=== PATIENT | female | born 1955 | race Caucasian/White ===

== ENCOUNTER → 2016-12-27 | Outpatient (REF) | payer MEDICARE, OTHER ==
[~2016-12-27] MED LIST: /BACIOPOI; /ESOM40CA; CETI10TA; CIPR500T19; CLON0.5T; HYDR25TA6; LAMI25TA; NORV5TAB; PAXI30TA
== END ==
LOC: M SFHCWAGY 11:55
PROVIDERS: ATTEND Nurse Practitioner Family
DX: N30.00 Acute cystitis without hematuria (principal); Z12.72 Encounter for screening for malignant neoplasm of vagina; Z12.12 Encounter for screening for malignant neoplasm of rectum
CPT/HCPCS: 81002; 82270; 87088; 87186; G0101; G0123

== ENCOUNTER → 2016-12-29 | Outpatient (CLI) | payer MEDICARE, OTHER ==
--- NOTE | 2016-12-29 14:14 | REPMRS ---
Patient History The patient states she had a clinical breast exam in December 2016. Patient is postmenopausal and has history of cancer in the left breast at age 50. Family history of breast cancer in maternal grandmother at age 50 or over. Malignant excisional biopsy of the left breast, 2006. Benign stereotatic breast biopsy of the right breast. Digital Mammo Diagnostic Bilateral: December 29, 2016 - Exam #: [id number] Bilateral CC and MLO view(s) were taken. Technologist: Vivian Leon Technologist Prior study comparison: July 16, 2014, digital woman screen mammo, performed at [facility]. January 25, 2011, bilateral bilat screen digital mammo, performed at [facility] ([facility]). FINDINGS: There are scattered fibroglandular densities. There is a moderate amount of residual fibroglandular tissue which is fairly symmetric. There is no interval development of dominant mass, architectural distortion, or clustered microcalcification typical of malignancy. There has been no change in the appearance of the mammogram from the prior studies. ASSESSMENT: BI-RADS/ACR category 1 mammogram. Negative. Recommendation Routine screening mammogram of both breasts in 1 year (for women over age 40). This mammogram was interpreted with the aid of an FDA-approved computer-aided dectection system. Electronically Signed By: Grant Greenwood MD 12/29/16 [id number]
== END ==
LOC: M RAD 13:47
PROVIDERS: ATTEND Nurse Practitioner Family
DX: N64.4 Mastodynia (principal); N63 Unspecified lump in breast; Z78.0 Asymptomatic menopausal state; Z85.3 Personal history of malignant neoplasm of breast; Z80.3 Family history of malignant neoplasm of breast

== ENCOUNTER 2017-07-06 23:05 | Emergency (ER) | payer MEDICARE, OTHER ==
[~2017-07-06] VITALS: Ht 170.2 cm; Wt 72.7 kg
[2017-07-06] MEDS ORDERED: LAMI25TA (23:19)
[2017-07-06] MEDS ORDERED: VERA100C (23:19)
[2017-07-06] MEDS ORDERED: EFFE37.527 (23:19)
[2017-07-06] MEDS ORDERED: KETOROLAC 30 MG/ML VIAL (J1885) IV ONE (23:30)
[2017-07-06 23:48] LABS: INR 0.94
[2017-07-07 00:01] LABS: ANION GAP 5 MEQ/L (8-16); BLOOD UREA NITROGEN 26 MG/DL (7-18); CALCIUM LEVEL 9.2 MG/DL (8.8-10.2); CARBON DIOXIDE LEVEL 31 MEQ/L (21-32); CHLORIDE LEVEL 102 MEQ/L (98-107); CREATININE FOR GFR 1.03 MG/DL (0.55-1.02); GLOMERULAR FILTRATION RATE 58.2 (>45); GLUCOSE, FASTING 170 MG/DL (80-110); POTASSIUM SERUM 2.9 MEQ/L (3.5-5.1); SODIUM LEVEL 138 MEQ/L (136-145)
[2017-07-07] MEDS ORDERED: POTASSIUM CHLORIDE 10 MEQ SR TABLET PO ONE (00:15)
[2017-07-07] MEDS ORDERED: ISOVUE-370 76% 100ML VIAL (Q9967) As Ordered ONE (00:57)
[2017-07-07] MEDS ORDERED: NS 500 ML IV ONE (01:00)
--- NOTE | 2017-07-07 02:20 | REPUSA ---
CLINICAL HISTORY: Pain. TECHNIQUE: Multiple axial CT images were obtained through the thorax with IV contrast material. COMMENTS: Mild emphysema. There is no evidence of pleural or parenchymal mass. There are no pleural effusions. There is no evid ence of hilar or mediastinal lymphadenopathy. The heart and great vessels are within normal limits. The visualized portions of the liver are of uniform attenuation without mass or defect. There is no i ntra or extrahepatic biliary ductal dilatation. The spleen is unremarkable. The visualized pancreas i s of normal contour and attenuation characteristics. There is no evidence of adrenal mass. The visual ized portions of the kidneys present no abnormalities. The bony structures are free of lytic or blastic lesions. Post contrast images demonstrate no evidence for abnormal enhancement. Prior cholecystectomy. No central pulmonary embolus or aortic dissection is seen. IMPRESSION: Mild emphysema. No evidence of acute thoracic pathology. Thank you for your kind referral of this patient.
[2017-07-07] MEDS ORDERED: KETO10TAB PO (02:31)
[2017-07-07 02:43] VITALS: BP 139/63
--- NOTE | 2017-07-07 08:32 | ECGEPIP ---
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
== END 2017-07-07 02:48 | disposition home or self-care (01) ==
LOC: M ED 23:05
DX: R07.89 Other chest pain (principal); J44.9 Chronic obstructive pulmonary disease, unspecified; K21.9 Gastro-esophageal reflux disease without esophagitis; K44.9 Diaphragmatic hernia without obstruction or gangrene; F33.9 Major depressive disorder, recurrent, unspecified; F17.210 Nicotine dependence, cigarettes, uncomplicated; Z98.890 Other specified postprocedural states; Z79.899 Other long term (current) drug therapy; Z88.1 Allergy status to other antibiotic agents; Z88.0 Allergy status to penicillin; Z88.2 Allergy status to sulfonamides
CPT/HCPCS: 71260; 80048; 82550; 82553; 84484; 85610; 85730; 93005; 96374; 99284; J1885; Q9967

== ENCOUNTER → 2017-07-22 | Outpatient (CLI) | payer MEDICARE, OTHER ==
[~2017-07-22] MED LIST changes: +EFFE37.527; +KETO10TAB PO; +VERA100C
[2017-07-22 20:02] LABS: CALCIUM LEVEL 9.6 MG/DL (8.8-10.2); CREATININE FOR GFR 1.08 MG/DL (0.55-1.02); GLOMERULAR FILTRATION RATE 55.1 (>45); POTASSIUM SERUM 3.4 MEQ/L (3.5-5.1)
== END ==
LOC: M LAB 18:52
PROVIDERS: ATTEND Family Medicine
DX: I10 Essential (primary) hypertension (principal)

== ENCOUNTER 2018-04-05 14:43 | Emergency (ER) | payer MEDICARE, OTHER ==
[2018-04-05] MEDS: LIDOCAINE W/EPINEPHRINE 1% 20ML VIAL SC (16:01)
== END 2018-04-05 16:27 | disposition home or self-care (01) ==
LOC: M ED 14:43
DX: J44.9 Chronic obstructive pulmonary disease, unspecified (principal); R05 Cough; S90.851A Superficial foreign body, right foot, initial encounter; W45.8XXA Other foreign body or object entering through skin, initial encounter; Y92.9 Unspecified place or not applicable; Y93.9 Activity, unspecified; Y99.9 Unspecified external cause status; K44.9 Diaphragmatic hernia without obstruction or gangrene; F41.9 Anxiety disorder, unspecified; F32.9 Major depressive disorder, single episode, unspecified; Z85.3 Personal history of malignant neoplasm of breast; Z72.0 Tobacco use; Z79.899 Other long term (current) drug therapy; Z88.0 Allergy status to penicillin; Z88.2 Allergy status to sulfonamides; Z88.1 Allergy status to other antibiotic agents
CPT/HCPCS: 71046

== ENCOUNTER → 2018-04-24 | Outpatient (REF) | payer MEDICARE, OTHER | LOC: M SFHCWAGY 18:09 | DX: R35.0 Frequency of micturition (principal) | CPT/HCPCS: 87088; 87186 ==

== ENCOUNTER 2018-05-05 13:34 | Emergency (ER) | payer MEDICARE, OTHER | END 2018-05-05 15:05 | disposition home or self-care (01) | LOC: M ED 13:34 | DX: Z76.0 Encounter for issue of repeat prescription (principal); I10 Essential (primary) hypertension; Z79.899 Other long term (current) drug therapy; Z88.0 Allergy status to penicillin; Z88.1 Allergy status to other antibiotic agents; Z88.2 Allergy status to sulfonamides; F17.210 Nicotine dependence, cigarettes, uncomplicated | CPT/HCPCS: 99283 ==

== ENCOUNTER → 2018-09-06 | Outpatient (CLI) | payer MEDICARE, OTHER ==
[2018-09-06 11:17] LABS: BASO # 0.1 10^3/uL (0.0-0.2); BASO % 0.6 % (0.0-1.0); EOS # 0.1 10^3/uL (0.0-0.50); EOS % 1.7 % (0.0-3.0); HEMOGLOBIN 14.9 g/dl (12.0-15.5); IMMATURE GRANULOCYTE % 0.3 % (0-3.0); LYMPH # 2.2 10^3/uL (1.5-4.5); LYMPH % 28.7 % (24.0-44.0); MEAN CORPUSCULAR HEMOGLOBIN 31.4 pg (27.0-33.0); MEAN CORPUSCULAR HGB CONC 33.9 g/dl (32.0-36.5); MEAN CORPUSCULAR VOLUME 92.6 fl (80.0-96.0); MONO # 0.7 10^3/uL (0.0-0.8); MONO % 9.3 % (0.0-5.0); NEUTROPHILS # 4.6 10^3/uL (1.8-7.7); NEUTROPHILS % 59.4 % (36.0-66.0); PLATELET COUNT, AUTOMATED 282 10^3/uL (150-450); RED BLOOD COUNT 4.75 10^6/uL (4.00-5.40); RED CELL DISTRIBUTION WIDTH 12.5 % (11.5-14.5); WHITE BLOOD COUNT 7.8 10^3/uL (4.0-10.0)
[2018-09-06 11:42] LABS: ALBUMIN 3.8 GM/DL (3.2-5.2); ALBUMIN/GLOBULIN RATIO 0.84 (1.00-1.93); ALKALINE PHOSPHATASE 92 U/L (45-117); ALT/SGPT 25 U/L (12-78); ANION GAP 5 MEQ/L (8-16); AST/SGOT 19 U/L (7-37); BILIRUBIN,TOTAL 0.2 MG/DL (0.2-1.0); BLOOD UREA NITROGEN 24 MG/DL (7-18); CALCIUM LEVEL 9.8 MG/DL (8.8-10.2); CARBON DIOXIDE LEVEL 30 MEQ/L (21-32); CHLORIDE LEVEL 106 MEQ/L (98-107); CHOLESTEROL LEVEL 205 MG/DL (<200); CHOLESTEROL RISK RATIO 5.125 (<5); CREATININE FOR GFR 1.11 MG/DL (0.55-1.30); GLOMERULAR FILTRATION RATE 53.2 (>45); GLUCOSE, FASTING 109 MG/DL (70-100); HDL CHOLESTEROL 40 MG/DL (>40); LDL CHOLESTEROL 144 MG/DL (<100); NON-HDL-C 165 MG/DL; POTASSIUM SERUM 4.3 MEQ/L (3.5-5.1); SODIUM LEVEL 141 MEQ/L (136-145); TOTAL PROTEIN 8.3 GM/DL (6.4-8.2); TRIGLYCERIDES LEVEL 104 MG/DL (<150)
== END ==
LOC: M LAB 10:42
DX: I10 Essential (primary) hypertension (principal)
CPT/HCPCS: 36591

== ENCOUNTER → 2018-09-27 | Outpatient (REF) | payer MEDICARE, OTHER ==
[~2018-09-27] MED LIST changes: +CHERSYP3 PO; +EFFE37.5; -EFFE37.527; +HYDR-3363 PO; +LEVA45AE; +SPIR12.9 INH; +SYMB16INH INH; +TESS100C PO; +TRAZ-160
== END ==
LOC: M SFHCWAGY 15:28
PROVIDERS: ATTEND Nurse Practitioner Family
DX: R30.0 Dysuria (principal)
CPT/HCPCS: 81002; 87088; 87186; G0463

== ENCOUNTER → 2018-10-19 | Outpatient (REF) | payer MEDICARE, OTHER ==
[2018-10-19 12:29] LABS: AMORPHOUS SEDIMENT SMALL (NEGATIVE); APPEARANCE, URINE CLEAR (CLEAR); BACTERIA, URINE AUTO NEGATIVE (NEGATIVE); BILIRUBIN, URINE AUTO NEGATIVE (NEGATIVE); BLOOD, URINE BLOOD NEGATIVE (NEGATIVE); COLOR, URINE YELLOW (YELLOW); GLUCOSE, URINE (UA) AUTO NEGATIVE (NEGATIVE); KETONE, URINE AUTO NEGATIVE (NEGATIVE); LEUKOCYTE ESTERASE, URINE AUTO 1+ (NEGATIVE); MUCUS, URINE SMALL (NEGATIVE); NITRITE, URINE AUTO NEGATIVE (NEGATIVE); PROTEIN, URINE AUTO NEGATIVE (NEGATIVE); RBC, URINE AUTO 1 /HPF (0-3); SPECIFIC GRAVITY URINE AUTO 1.023 (1.002-1.035); SQUAMOUS EPITHELIAL CELL UR AU 2 /HPF (0-6); UROBILINOGEN, URINE AUTO 0.2 mg/dL (0.0-2.0); WBC, URINE AUTO 3 /HPF (0-3)
== END ==
LOC: M SFHCWAGY 11:51
PROVIDERS: ATTEND Nurse Practitioner Family
DX: R30.0 Dysuria (principal)

== ENCOUNTER → 2018-10-19 | Outpatient (CLI) | payer MEDICARE, OTHER ==
--- NOTE | 2018-10-19 10:44 | REP ---
CT CHEST WITHOUT CONTRAST: HISTORY: Hemoptysis. Comparison chest CT study July 07, 2017 showed evidence of mild emphysema. CT FINDINGS: There are mild emphysematous changes again noted in the upper lobes bilaterally, left a little more so than right. No new infiltrate is seen. There are stable pleural based nodules including a nodule in the right middle lobe laterally on page 61 of 110 in series 201 of today's study. This is unchanged and measures 6 mm. There is a 4 mm pleural-based nodule in the right lower lobe posteriorly on page 46. This is unchanged. There is some linear fibrosis in the right upper lobe posteriorly on page 36 which is unchanged. There is a 4 mm nodular density in the left upper lobe medially adjacent to the middle mediastinum which appears more prominent than on the July 07, [address] Sagittal multiplanar reformation images suggest that this is part of a linear area of increased density. It does appear more prominent than the prior study however and merits additional followup. No other significant pulmonary nodule is seen. There is some vascular calcification. There is no evidence of mediastinal mass or adenopathy. The tracheobronchial tree is unremarkable. There are clips in the gallbladder fossa and there is a small cyst in the right lobe of the liver. No adrenal lesion is observed. IMPRESSION: Multiple stable noncalcified pulmonary nodules. No infiltrate, mass or adenopathy is seen. There is a somewhat nodular density in the left upper lobe medially adjacent to the mediastinum which appears slightly more prominent than on the July 07, [address] study[address] Additional [address] study is recommended in 6-9 months. Electronically Signed by Abdullahi Greenwood MD 10/19/2018 05:00 P
== END ==
LOC: M RAD 09:13
PROVIDERS: ATTEND Family Medicine
DX: R91.8 Other nonspecific abnormal finding of lung field (principal); K76.89 Other specified diseases of liver; R04.2 Hemoptysis; J44.9 Chronic obstructive pulmonary disease, unspecified; R30.0 Dysuria
CPT/HCPCS: 71250; 81001; 81002; 87086; G0463

== ENCOUNTER 2019-01-10 16:35 | Emergency (ER) | payer MEDICARE, OTHER ==
[~2019-01-10] VITALS: Ht 170.2 cm; Wt 73.2 kg
[~2019-01-10 16:35] MED LIST changes: -/ESOM40CA; +NEXI1CAP3
[2019-01-10] MEDS ORDERED: SYMB16INH INH ×2 (16:53→19:35)
[2019-01-10] MEDS ORDERED: MYRB50TA PO (16:53)
[2019-01-10] MEDS ORDERED: LISI10TA4 PO (16:53)
[2019-01-10] MEDS ORDERED: ATOR1TAB21 PO (16:53)
--- NOTE | 2019-01-10 17:25 | REP ---
Clinical: Cough . Comparison: 04/05/2018 . Technique: PA and lateral. Findings: The mediastinum and cardiac silhouette are normal. The lung kennedy are clear and without acute consolidation, effusion, or pneumothorax. The skeletal structures are intact and normal. Impression: 1. No acute cardiopulmonary process. Electronically Signed by Krunal Bailey MD 01/10/2019 05:17 P
[2019-01-10] MEDS ORDERED: predniSONE 20 MG TAB PO ONE (18:45)
[2019-01-10] MEDS ORDERED: IPRATROPIUM 0.5MG/ALBUTEROL 2.5MG INH SOL UD 3ML (DUONEB)(J7620) NEB ONE (18:45)
[2019-01-10 19:25] VITALS: BP 145/75
[2019-01-10] MEDS ORDERED: IPRA0.00 NEB (19:35)
[2019-01-10] MEDS ORDERED: MEDR4PAK PO (19:35)
--- NOTE | 2019-01-11 10:21 | ECGEPIP ---
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
== END 2019-01-10 19:45 | disposition home or self-care (01) ==
LOC: M ED 16:35
DX: J44.1 Chronic obstructive pulmonary disease with (acute) exacerbation (principal); I10 Essential (primary) hypertension; I47.1 Supraventricular tachycardia; K21.9 Gastro-esophageal reflux disease without esophagitis; F33.9 Major depressive disorder, recurrent, unspecified; F41.9 Anxiety disorder, unspecified; Z79.899 Other long term (current) drug therapy; Z88.0 Allergy status to penicillin; Z88.1 Allergy status to other antibiotic agents; Z88.2 Allergy status to sulfonamides; F17.210 Nicotine dependence, cigarettes, uncomplicated

== ENCOUNTER 2019-03-31 12:46 | Emergency (ER) | payer MEDICARE, OTHER ==
[~2019-03-31] VITALS: Ht 170.2 cm; Wt 75.9 kg
[~2019-03-31 12:46] MED LIST changes: +ATOR1TAB21 PO; +IPRA0.00 NEB; +LISI10TA4 PO; +MEDR4PAK PO; +MYRB50TA PO; -TRAZ-160; +TRAZ-252
[2019-03-31] MEDS ORDERED: MACR100C43 PO (14:51)
[2019-03-31 14:59] VITALS: BP 157/73
== END 2019-03-31 14:58 | disposition home or self-care (01) ==
LOC: M ED 12:46
DX: N39.0 Urinary tract infection, site not specified (principal); N95.2 Postmenopausal atrophic vaginitis; Z79.899 Other long term (current) drug therapy; Z88.0 Allergy status to penicillin; Z88.1 Allergy status to other antibiotic agents; Z88.2 Allergy status to sulfonamides; F17.210 Nicotine dependence, cigarettes, uncomplicated

== ENCOUNTER 2019-05-04 02:38 | Emergency (ER) | payer MEDICARE, OTHER ==
[~2019-05-04] VITALS: Ht 170.2 cm; Wt 75.7 kg
[~2019-05-04 02:38] MED LIST changes: +MACR100C43 PO
[2019-05-04 03:21] LABS: BASO % 0.6 % (0.0-1.0); EOS # 0.3 10^3/uL (0.0-0.50); EOS % 5.3 % (0.0-3.0); HEMATOCRIT 40.7 % (36.0-47.0); HEMOGLOBIN 14.1 g/dl (12.0-15.5); LYMPH # 2.3 10^3/uL (1.5-4.5); MEAN CORPUSCULAR HEMOGLOBIN 31.3 pg (27.0-33.0); MEAN CORPUSCULAR HGB CONC 34.6 g/dl (32.0-36.5); MEAN CORPUSCULAR VOLUME 90.2 fl (80.0-96.0); MONO # 0.7 10^3/uL (0.0-0.8); MONO % 10.7 % (0.0-5.0); NEUTROPHILS % 47.1 % (36.0-66.0); PLATELET COUNT, AUTOMATED 246 10^3/uL (150-450); RED BLOOD COUNT 4.51 10^6/uL (4.00-5.40); WHITE BLOOD COUNT 6.5 10^3/uL (4.0-10.0)
[2019-05-04 03:25] LABS: PROTHROMBIN TIME 12.9 SECONDS (11.8-14.0)
[2019-05-04 03:26] LABS: PARTIAL THROMBOPLASTIN TIME 30.4 SECONDS (25.0-38.4)
[2019-05-04 03:39] LABS: ALBUMIN 3.8 GM/DL (3.2-5.2); ALT/SGPT 36 U/L (12-78); BILIRUBIN,DIRECT < 0.1 MG/DL (0.0-0.2); BILIRUBIN,TOTAL 0.2 MG/DL (0.2-1.0); BLOOD UREA NITROGEN 19 MG/DL (7-18); CALCIUM LEVEL 9.2 MG/DL (8.8-10.2); CARBON DIOXIDE LEVEL 28 MEQ/L (21-32); CHLORIDE LEVEL 105 MEQ/L (98-107); CK-MB VALUE MASS 9.1 NG/ML (<3.6); CPK CREATINE PHOSPHOKINASE 427 U/L (26-192); CREATININE FOR GFR 1.11 MG/DL (0.55-1.30); FREE T4 0.87 NG/DL (0.76-1.46); GLUCOSE, FASTING 147 MG/DL (70-100); MB/CK RELATIVE INDEX 2.13 (< OR =4); POTASSIUM SERUM 3.6 MEQ/L (3.5-5.1); SODIUM LEVEL 139 MEQ/L (136-145); THYROID STIMULATING HORMONE 0.616 uIU/ML (0.358-3.740); TOTAL PROTEIN 8.7 GM/DL (6.4-8.2); TROPONIN I < 0.02 NG/ML (< 0.10)
--- NOTE | 2019-05-04 05:42 | REPVR ---
EXAM: XR Chest, 2 Views EXAM DATE/TIME: 05/04/2019 3:38 AM CLINICAL HISTORY: 64 years old, female; Other: cough TECHNIQUE: Imaging protocol: XR of the chest, 2 views. COMPARISON: CR Chest, 2 view PA, Lat 01/10/2019 5:11 PM FINDINGS: Lungs: No consolidation. Hyperaeration of the lungs. Pleural space: Unremarkable. No pleural effusion. No pneumothorax. Heart/Mediastinum: Unremarkable. No cardiomegaly. Bones/joints: Unremarkable. IMPRESSION: 1. No acute infiltrate. 2. Hyperaeration of the lungs. Electronically signed by: Becki Simmons On 05/04/2019 05:42:37 AM
[2019-05-04 06:00] VITALS: BP 133/62
--- NOTE | 2019-05-04 06:03 | ECGEPIP ---
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
== END 2019-05-04 06:16 | disposition home or self-care (01) ==
LOC: M ED 02:38
DX: J06.9 Acute upper respiratory infection, unspecified (principal); I10 Essential (primary) hypertension; J44.9 Chronic obstructive pulmonary disease, unspecified; F33.9 Major depressive disorder, recurrent, unspecified; F41.9 Anxiety disorder, unspecified; Z79.899 Other long term (current) drug therapy; Z88.0 Allergy status to penicillin; Z88.1 Allergy status to other antibiotic agents; Z88.2 Allergy status to sulfonamides; Z88.5 Allergy status to narcotic agent; F17.210 Nicotine dependence, cigarettes, uncomplicated

== ENCOUNTER 2019-05-11 15:29 | Emergency (ER) | payer MEDICARE, OTHER ==
[~2019-05-11] VITALS: Ht 170.2 cm; Wt 73.8 kg
[2019-05-11 15:29] VITALS: BP 144/74
--- NOTE | 2019-05-11 16:32 | REP ---
LEFT HUMERUS, TWO VIEWS: There is no evidence of an acute fracture, dislocation or intrinsic bone disease. IMPRESSION: No fracture or dislocation. Electronically Signed by Papito Casillas MD 05/15/2019 05:40 P
--- NOTE | 2019-05-11 16:32 | REP ---
LEFT SHOULDER, THREE VIEWS: Three views of the left shoulder are performed. There is no acute fracture or dislocation. There is mild narrowing at the acromioclavicular joint. IMPRESSION: No acute fracture or dislocation. Electronically Signed by Papito Casillas MD 05/15/2019 05:40 P
== END 2019-05-11 18:43 | disposition left against medical advice (07) ==
LOC: M ED 15:29
DX: R07.82 Intercostal pain (principal); M79.622 Pain in left upper arm; R07.9 Chest pain, unspecified; J44.9 Chronic obstructive pulmonary disease, unspecified; I10 Essential (primary) hypertension; K21.9 Gastro-esophageal reflux disease without esophagitis; K44.9 Diaphragmatic hernia without obstruction or gangrene; Z85.3 Personal history of malignant neoplasm of breast; Z72.0 Tobacco use; Z79.899 Other long term (current) drug therapy; Z88.0 Allergy status to penicillin; Z88.2 Allergy status to sulfonamides; Z88.5 Allergy status to narcotic agent; Z88.1 Allergy status to other antibiotic agents; Z53.21 Procedure and treatment not carried out due to patient leaving prior to being seen by health care provider

== ENCOUNTER → 2019-06-08 | Outpatient (CLI) | payer MEDICARE, OTHER ==
[~2019-06-08] MED LIST changes: -VERA100C; +VERA100C4
--- NOTE | 2019-06-08 19:34 | REP ---
CT of the chest without IV contrast for follow up of lung nodules: Comparisons are 10/19/2018, 07/07/2017 and 10/21/2012. There is a 4 mm left upper lobe paramediastinal lung nodule on image and 19, unchanged from 11/08/1998, not definitely present on the other comparison studies. Just superior to this there is a 3 mm paramediastinal nodule in the left upper lobe measuring unchanged from all prior studies. There is a pleural-based 4 mm lung nodule posteriorly in the right upper lobe on image 31, unchanged from all prior studies. There is a pleural-based lung nodule in the superior segment right lower lobe measuring 4 mm, unchanged from all prior studies. The there is a pleural-based nodule laterally in the lateral segment of the right middle lobe measuring 6 mm. This measured at 8 mm of 10/21/2012. There are no new lung nodules or masses. There are no acute infiltrates or pleural effusions. There is no mediastinal or axillary lymph node enlargement. In the absence of IV contrast the study is insensitive for hilar lymph node enlargement. The unenhanced thoracic aorta is unremarkable. Cardiac size is normal. In the upper abdomen there is no adrenal mass. There is a stable small nonspecific hypodensity in the right lobe of the liver, unchanged from all prior studies. Impression: Multiple stable lung nodules as described. Recommend follow-up chest CT in 1 year. Electronically Signed by Papito Massey MD 06/08/2019 07:25 P
== END ==
LOC: M RAD 17:51
PROVIDERS: ATTEND Family Medicine
DX: R91.8 Other nonspecific abnormal finding of lung field (principal)

== ENCOUNTER → 2019-09-21 | Outpatient (CLI) | payer MEDICARE, OTHER ==
[~2019-09-21] MED LIST changes: +VERA100C; -VERA100C4
--- NOTE | 2019-09-21 11:19 | REPMRS ---
Patient History The patient states she had a clinical breast exam in September 2019.Family history of breast cancer at age 50 or over in maternal grandmother. Malignant excisional biopsy of the left breast, 2006. Benign stereotatic breast biopsy of the right breast. 3D TOMOSYNTHESIS WAS PERFORMED. Digital Woman Screen Mammo: September 21, 2019 - Exam #: [id number] Bilateral CC and MLO view(s) were taken. Technologist: Yamilka Mccurdy, Technologist Prior study comparison: December 29, 2016, digital mammo diagnostic bilateral, performed at [facility]. July 16, 2014, digital woman screen mammo performed at [facility]. FINDINGS: The breast tissue is heterogeneously dense. This may lower the sensitivity of mammography. There has been no change in the appearance of the mammogram from the prior studies. There is a moderate amount of residual fibroglandular tissue which is fairly symmetric. There is no interval development of dominant mass, areas of architectural distortion, or clustered microcalcification typical of malignancy. Assessment: BI-RADS/ACR category 1 mammogram. Negative Mammogram. Recommendation Routine screening mammogram in 1 year (for women over age 40). This mammogram was interpreted with the aid of an FDA-approved computer-aided dectection system. Electronically Signed By: Papito Casillas MD 09/21/19 [id number]
== END ==
LOC: M WHC 10:16
PROVIDERS: ATTEND Nurse Practitioner Family
DX: Z12.31 Encounter for screening mammogram for malignant neoplasm of breast (principal); Z85.3 Personal history of malignant neoplasm of breast; R30.0 Dysuria
CPT/HCPCS: 77063; 77067; 81002; 87086; G0463

== ENCOUNTER → 2019-10-31 | Outpatient (CLI) | payer MEDICARE, OTHER ==
[~2019-10-31] MED LIST changes: -VERA100C; +VERA100C4
[2019-10-31 17:30] LABS: BASO # 0.1 10^3/uL (0.0-0.2); BASO % 0.7 % (0.0-1.0); EOS # 0.1 10^3/uL (0.0-0.5); EOS % 1.6 % (0.0-3.0); HEMATOCRIT 45.2 % (36.0-47.0); HEMOGLOBIN 15.4 g/dl (12.0-15.5); LYMPH # 2.6 10^3/uL (1.5-5.0); LYMPH % 33.5 % (24.0-44.0); MEAN CORPUSCULAR HEMOGLOBIN 31.2 pg (27.0-33.0); MEAN CORPUSCULAR HGB CONC 34.1 g/dl (32.0-36.5); MEAN CORPUSCULAR VOLUME 91.5 fl (80.0-96.0); MONO # 0.6 10^3/uL (0.0-0.8); MONO % 7.7 % (0.0-5.0); NEUTROPHILS # 4.3 10^3/uL (1.5-8.5); NEUTROPHILS % 56.4 % (36.0-66.0); RED BLOOD COUNT 4.94 10^6/uL (4.00-5.40); WHITE BLOOD COUNT 7.6 10^3/uL (4.0-10.0)
[2019-10-31 17:53] LABS: ALT/SGPT 32 U/L (12-78); BILIRUBIN,TOTAL 0.3 MG/DL (0.2-1.0); BLOOD UREA NITROGEN 24 MG/DL (7-18); CALCIUM LEVEL 9.5 MG/DL (8.8-10.2); CARBON DIOXIDE LEVEL 26 MEQ/L (21-32); CHLORIDE LEVEL 105 MEQ/L (98-107); CREATININE FOR GFR 0.99 MG/DL (0.55-1.30); FOLLICLE STIMULATING HORMONE 83.6 mIU/mL; GLOMERULAR FILTRATION RATE > 60.0 (>45); GLUCOSE, FASTING 86 MG/DL (70-100); LUTEINIZING HORMONE 40.1 mIU/mL; POTASSIUM SERUM 3.5 MEQ/L (3.5-5.1); SODIUM LEVEL 139 MEQ/L (136-145); THYROID STIMULATING HORMONE 0.307 uIU/ML (0.358-3.740); TOTAL PROTEIN 8.8 GM/DL (6.4-8.2)
== END ==
LOC: M LAB 16:15
PROVIDERS: ATTEND Family Medicine
DX: R23.2 Flushing (principal); R53.81 Other malaise

== ENCOUNTER → 2019-11-21 | Outpatient (CLI) | payer MEDICARE, OTHER ==
[2019-11-21 17:59] LABS: FREE T3 2.8 PG/ML (2.2-4.0); FREE T4 0.83 NG/DL (0.76-1.46); THYROID STIMULATING HORMONE 0.293 uIU/ML (0.358-3.740)
== END ==
LOC: M LAB 17:02
PROVIDERS: ATTEND Family Medicine
DX: E07.9 Disorder of thyroid, unspecified (principal)

== ENCOUNTER → 2019-11-30 | Outpatient (CLI) | payer MEDICARE, OTHER ==
[2019-11-30 19:01] LABS: APPEARANCE, URINE HAZY (CLEAR); BACTERIA, URINE AUTO 1+ (NEGATIVE); BILIRUBIN, URINE AUTO NEGATIVE (NEGATIVE); BLOOD, URINE BLOOD NEGATIVE (NEGATIVE); COLOR, URINE YELLOW (YELLOW); GLUCOSE, URINE (UA) AUTO NEGATIVE (NEGATIVE); KETONE, URINE AUTO NEGATIVE (NEGATIVE); LEUKOCYTE ESTERASE, URINE AUTO 2+ (NEGATIVE); MUCUS, URINE SMALL (NEGATIVE); NITRITE, URINE AUTO NEGATIVE (NEGATIVE); PROTEIN, URINE AUTO NEGATIVE (NEGATIVE); RBC, URINE AUTO 6 /HPF (0-3); SPECIFIC GRAVITY URINE AUTO 1.019 (1.002-1.035); SQUAMOUS EPITHELIAL CELL UR AU 1 /HPF (0-6); UROBILINOGEN, URINE AUTO 0.2 mg/dL (0.0-2.0); WBC, URINE AUTO 18 /HPF (0-3)
[2019-11-30 19:10] LABS: C REACTIVE PROTEIN QUANTITATIV 0.47 MG/DL (0.00-0.30); FREE T3 3.2 PG/ML (2.2-4.0); FREE T4 0.97 NG/DL (0.76-1.46); THYROID STIMULATING HORMONE 0.228 uIU/ML (0.358-3.740)
[2019-11-30 20:07] LABS: HIV 1&2 SCREEN CENTAUR NEGATIVE (NEGATIVE)
== END ==
LOC: M LAB 18:01
PROVIDERS: ATTEND Family Medicine
DX: R23.2 Flushing (principal); R61 Generalized hyperhidrosis; E07.9 Disorder of thyroid, unspecified

== ENCOUNTER 2020-02-25 16:32 | Emergency (ER) | payer MEDICARE, OTHER ==
[~2020-02-25] VITALS: Ht 170.2 cm; Wt 78.5 kg
[2020-02-25] MEDS ORDERED: LAMI1TAB9 PO (16:51)
[2020-02-25] MEDS ORDERED: AMAN100T PO (16:51)
[2020-02-25] MEDS ORDERED: PROAAER10 INH (16:51)
[2020-02-25] MEDS ORDERED: HYDR-3363 PO (16:51)
[2020-02-25] MEDS ORDERED: TRAZ-257 PO (16:51)
[2020-02-25] MEDS ORDERED: IBUP-1022 PO (16:51)
[2020-02-25] MEDS ORDERED: EFFE150C2 PO (16:51)
[2020-02-25] MEDS ORDERED: HYDR25TAB PO (16:51)
[2020-02-25] MEDS ORDERED: MAGNESIUM CITRATE 300 ML BTL PO ONE (17:00)
[2020-02-25 17:25] LABS: BASO # 0.1 10^3/uL (0.0-0.2); BASO % 0.6 % (0.0-1.0); EOS # 0.1 10^3/uL (0.0-0.5); EOS % 1.6 % (0.0-3.0); HEMATOCRIT 40.7 % (36.0-47.0); HEMOGLOBIN 14.1 g/dl (12.0-15.5); LYMPH # 2.4 10^3/uL (1.5-5.0); LYMPH % 28.3 % (24.0-44.0); MEAN CORPUSCULAR HGB CONC 34.6 g/dl (32.0-36.5); MEAN CORPUSCULAR VOLUME 89.5 fl (80.0-96.0); MONO # 0.8 10^3/uL (0.0-0.8); MONO % 9.1 % (0.0-5.0); NEUTROPHILS # 5.1 10^3/uL (1.5-8.5); NEUTROPHILS % 59.7 % (36.0-66.0); PLATELET COUNT, AUTOMATED 254 10^3/uL (150-450); RED BLOOD COUNT 4.55 10^6/uL (4.00-5.40); WHITE BLOOD COUNT 8.6 10^3/uL (4.0-10.0)
[2020-02-25 17:54] LABS: ALBUMIN 3.8 GM/DL (3.2-5.2); BILIRUBIN,DIRECT 0.1 MG/DL (0.0-0.2); BILIRUBIN,TOTAL 0.3 MG/DL (0.2-1.0); TOTAL PROTEIN 8.4 GM/DL (6.4-8.2)
[2020-02-25] MEDS ORDERED: ONDANSETRON 4 MG ORAL DISINTEGRATING TAB PO ONE (19:15)
[2020-02-25] MEDS ORDERED: MIRA3350 PO (19:32)
[2020-02-25 19:41] VITALS: BP 157/73
--- NOTE | 2020-02-26 08:33 | REP ---
KUB: Two views. HISTORY: Constipation. Rule out obstruction. FINDINGS: There are surgical clips in right upper quadrant and vascular calcification is visible in the right pelvis. Degenerative changes are seen at the lumbosacral junction in the spine. Flank stripes and psoas margins are intact. Bowel gas pattern is unremarkable. There are surgical clips along the left inferior pelvis. IMPRESSION: Normal bowel gas pattern. Postoperative changes and some vascular calcification. Otherwise negative. Electronically Signed by Abdullahi Greenwood MD 02/26/2020 11:24 A
== END 2020-02-25 19:44 | disposition home or self-care (01) ==
LOC: M ED 16:32
DX: K59.00 Constipation, unspecified (principal); I10 Essential (primary) hypertension; J44.9 Chronic obstructive pulmonary disease, unspecified; I47.1 Supraventricular tachycardia; Z79.899 Other long term (current) drug therapy; Z88.0 Allergy status to penicillin; Z88.1 Allergy status to other antibiotic agents; Z88.2 Allergy status to sulfonamides; Z88.5 Allergy status to narcotic agent
CPT/HCPCS: 36415; 74018; 80047; 80076; 83690; 85025; 99283; Q0162

== ENCOUNTER → 2020-03-18 | Outpatient (REF) | payer MEDICARE, OTHER ==
[~2020-03-18] MED LIST changes: +AMAN100T PO; +AMLO5TAB6 PO; +EFFE150C2 PO; +HYDR25TAB PO; +IBUP-1022 PO; +LAMI1TAB9 PO; +MIRA3350 PO; +PROAAER10 INH; +TRAZ-257 PO
== END ==
LOC: M LAB REF 16:00
PROVIDERS: ATTEND Physician Assistant Medical
DX: Z11.59 Encounter for screening for other viral diseases (principal)

== ENCOUNTER 2020-03-19 21:50 | Emergency (ER) | payer MEDICARE, OTHER ==
[~2020-03-19] VITALS: Ht 170.2 cm; Wt 77.5 kg
[~2020-03-19 21:50] MED LIST changes: -AMLO5TAB6 PO
[2020-03-19 22:15] VITALS: BP 183/86
[2020-03-19] MEDS ORDERED: AMLO5TAB6 PO (22:17)
[2020-03-19] MEDS ORDERED: SUCRALFATE SUSP 1GM/10ML UD PO ONE (22:45)
[2020-03-19] MEDS ORDERED: LIDOCAINE VISCOUS 2% SOLN 15ML UDC PO ONE (22:45)
== END 2020-03-19 23:22 | disposition home or self-care (01) ==
LOC: M ED 21:50
DX: K08.89 Other specified disorders of teeth and supporting structures (principal)

== ENCOUNTER → 2020-07-08 | Outpatient (CLI) | payer MEDICARE, OTHER ==
[~2020-07-08] MED LIST changes: +AMLO1TAB24 PO; +ISOVUE-370 76% 100ML VIAL As Ordered ONE
[2020-07-08 10:19] LABS: ALBUMIN 3.5 GM/DL (3.2-5.2); BILIRUBIN,TOTAL 0.3 MG/DL (0.2-1.0); CALCIUM LEVEL 9.4 MG/DL (8.8-10.2); CREATININE FOR GFR 1.09 MG/DL (0.55-1.30); FREE T3 2.8 PG/ML (2.2-4.0); FREE T4 0.88 NG/DL (0.76-1.46); POTASSIUM SERUM 3.7 MEQ/L (3.5-5.1); THYROID STIMULATING HORMONE 0.377 uIU/ML (0.358-3.740); TOTAL PROTEIN 8.4 GM/DL (6.4-8.2)
--- NOTE | 2020-07-16 13:23 | REP ---
CT CHEST WITH IV CONTRAST HISTORY: Abnormal findings in lungs. COMPARISON: 06/08/2019 as well as other prior exams. FINDINGS: CT chest performed following the intravenous administration of 100 cc of Isovue- 370. Sagittal and coronal reconstruction images are performed. There is again scattered interstitial fibrotic change and areas of very mild pleural thickening which are unchanged. There is a subpleural 4 mm nodular opacity in the superior segment of the right lower lobe on image 42 which is stable. In the left upper lobe medially, there is a new irregular oval nodule along the mediastinum which measures 1.8 x 1.1 cm. This is suspicious for neoplasm. No other new nodular opacities are seen bilaterally. There are several subcentimeter axillary and mediastinal lymph nodes as well as a subcentimeter right hilar lymph node. There are no significantly enlarged lymph nodes that are greater than 1 cm in short axis. The heart is not enlarged. The thoracic aorta demonstrates mild atherosclerotic calcification with no aneurysm. There is no pleural or pericardial effusion. There is a small hiatal hernia. In the visualized upper abdomen, there is an enhancing nodule superiorly in the left lobe of the liver measuring 1.4 cm in diameter. This is not visualized on any of the prior CT exams with IV contrast. No other enhancing liver nodule is seen. There is a 1 cm cyst in the right lobe of the liver. The patient has had a prior cholecystectomy. There are degenerative changes of the spine. No definite bone lesion is seen. IMPRESSION: New irregular nodular opacity medially in the left upper lobe along the mediastinal border measures 1.8 x 1.1 cm and is suspicious for neoplasm. Other chronic changes in the lungs are stable. There are no significantly enlarged lymph nodes in the chest that are greater than 1 cm in short axis. There is an enhancing liver nodule superiorly in the left lobe 1.4 cm in diameter, not seen on prior studies. Recommend dedicated MRI of the liver with and without contrast to further evaluate. MTDD
== END ==
LOC: M RAD 09:10
PROVIDERS: ATTEND Family Medicine
DX: R91.8 Other nonspecific abnormal finding of lung field (principal); R23.2 Flushing; K76.89 Other specified diseases of liver; Z79.899 Other long term (current) drug therapy
CPT/HCPCS: 36415; 71260; 80053; 82672; 84439; 84443; 84481; Q9967

== ENCOUNTER 2020-08-06 18:34 | Emergency (ER) | payer MEDICARE, OTHER ==
[~2020-08-06] VITALS: Ht 170.2 cm; Wt 77.5 kg
[~2020-08-06 18:34] MED LIST changes: -ISOVUE-370 76% 100ML VIAL As Ordered ONE
--- NOTE | 2020-08-06 19:45 | REPVR ---
PROCEDURE INFORMATION: Exam: XR Right Shoulder Exam date and time: 08/06/2020 6:42 PM Age: 65 years old Clinical indication: Pain; Shoulder; Right; Additional info: Fall injury TECHNIQUE: Imaging protocol: XR Right shoulder. Views: 2 or more views. COMPARISON: None provided. FINDINGS: Bones/joints: No acute fracture or dislocation is identified. A broad-based osteophyte projects from the undersurface of the acromion. Degenerative changes involve the spine. Soft tissues: The soft tissues appear grossly unremarkable. There is a somewhat lobulated, partially sclerotic lesion based along the cortex of the proximal humeral shaft posterolaterally measuring up to 4.3 x 1.0 cm. The cortex here does not appear disrupted. IMPRESSION: 1. No acute fracture or dislocation identified. 2. Somewhat lobulated and partially sclerotic cortical based lesion along the proximal humeral shaft nonspecific. Correlate with MRI. 3. Degenerative changes as described. Electronically signed by: Andrew Del Valle On 08/06/2020 19:45:16 PM
--- NOTE | 2020-08-06 19:46 | REPVR ---
PROCEDURE INFORMATION: Exam: XR Right Clavicle, Complete Exam date and time: 08/06/2020 6:42 PM Age: 65 years old Clinical indication: Pain; Other: Clavicle; Additional info: Fall injury TECHNIQUE: Imaging protocol: XR Right clavicle complete. Any number of views. COMPARISON: CT Chest with contrast 07/08/2020 9:44 AM FINDINGS: Bones/joints: No acute fracture is identified. There is no osseous erosion or cortical destruction. Soft tissues: The soft tissues appear grossly unremarkable. IMPRESSION: No acute fracture identified. Electronically signed by: Andrew Del Valle On 08/06/2020 19:46:03 PM
[2020-08-06 20:43] VITALS: BP 207/88
--- NOTE | 2020-08-09 12:15 | ED PDOC ---
Post-Departure Follow-Up amira carrillo and jessy faxed formal repor tof right shoulder for fu Jorge Moses MD Aug 09, 2020 12:15
== END 2020-08-06 20:44 | disposition home or self-care (01) ==
LOC: M ED 18:34
DX: S43.401A Unspecified sprain of right shoulder joint, initial encounter (principal); W01.198A Fall on same level from slipping, tripping and stumbling with subsequent striking against other object, initial encounter; Y92.512 Supermarket, store or market as the place of occurrence of the external cause; Y93.01 Activity, walking, marching and hiking; Y99.8 Other external cause status; I10 Essential (primary) hypertension; J44.9 Chronic obstructive pulmonary disease, unspecified; Z85.3 Personal history of malignant neoplasm of breast; K44.9 Diaphragmatic hernia without obstruction or gangrene; F41.9 Anxiety disorder, unspecified; F32.9 Major depressive disorder, single episode, unspecified; F17.200 Nicotine dependence, unspecified, uncomplicated; Z88.0 Allergy status to penicillin; Z88.2 Allergy status to sulfonamides; Z88.1 Allergy status to other antibiotic agents; Z88.5 Allergy status to narcotic agent; Z79.899 Other long term (current) drug therapy; Z79.51 Long term (current) use of inhaled steroids

== ENCOUNTER → 2020-08-25 | Outpatient (CLI) | payer MEDICARE, OTHER ==
--- NOTE | 2020-08-25 14:25 | REP ---
INDICATION: NEOPLASM OF UNCERTAIN BEHAVIOR OF BONE . COMPARISON: Comparison right shoulder radiographs August 06, 2020.. TECHNIQUE: Axial, oblique coronal, and oblique sagittal imaging planes are utilized. T1 and T2 weighted scans are included with without fat saturation. FINDINGS: There is a a fairly prominent area of marrow edema in the anterior and inferior glenoid. Small subcortical cyst is seen in this location. There is an anterior inferior glenoid labral cartilage tear nondisplaced. Superior labrum and posterior labrum appear to be intact. There is a small quantity of glenohumeral joint fluid. A small sliver of subacromion subdeltoid bursal fluid is seen. There is tendinitis tendinosis in the distal supraspinatus tendon. No full thickness supraspinatus tear is seen. There is focal T2 hyperintensity within the substance of the supraspinatus tendon at 11-12 o'clock on the humeral head on oblique coronal T1 weighted scans consistent with incomplete intrasubstance supraspinatus tear. Biceps tendon is in the bony bicipital groove. The infraspinatus tendon appears intact. There is tendinosis in the cysts distal supra spinatus tendon. There is mild subcortical cyst formation in the humeral head as well. The AC joint shows osteoarthritic hypertrophy superiorly and to some degree inferiorly. There is mild posterolateral acromion process spurring. IMPRESSION: AC joint and acromion process spurring. Supraspinatus tendinosis. Anterior labral tear. Prominent marrow edema pattern is subcortical cyst formation in the anterior inferior glenoid. Small glenohumeral joint effusion. Partial thickness intrasubstance tear supraspinatus. <Electronically signed by Grant Greenwood > 08/25/20 [id number]
== END ==
LOC: M RAD 12:45
PROVIDERS: ATTEND Family Medicine
DX: D48.0 Neoplasm of uncertain behavior of bone and articular cartilage (principal)

== ENCOUNTER → 2020-12-09 | Outpatient (CLI) | payer OTHER ==
[~2020-12-09] MED LIST changes: +HYDR-3490 PO; -HYDR25TAB PO; +LISI10TA22 PO; -LISI10TA4 PO
--- NOTE | 2020-12-09 08:56 | PFTRPT ---
Height: 67.00 Inches Weight: 163.00 Lbs BSA: 1.85 Diagnosis: R91.1 DATE: 12/09/2020 ORDERING PHYSICIAN: Dr. Sanket La Pre and post bronchodilator studies have excellent technical quality. Forced vital capacity is reduced. FEV1 is in proportion. Obstructive index is therefore normal. Expiratory limit of the flow-volume loop does suggest flow rate limitation. No significant bronchodilator response is identified. Total lung capacity normal. Residual volume suggesting significant air trapping. Diffusing capacity although reduced is appropriate for alveolar volume. Hemoglobin is acceptable at 12.3. Airway resistance and conductance are normal. IMPRESSION: Suspected significant underlying air trapping. Please correlate clinically. MTDD
== END ==
LOC: M CARPUL 08:05
PROVIDERS: ATTEND Internal Medicine Pulmonary Disease
DX: R91.1 Solitary pulmonary nodule (principal)

== ENCOUNTER → 2021-02-16 | Outpatient (CLI) | payer OTHER ==
--- NOTE | 2021-02-16 18:11 | REP ---
INDICATION: STAGING NEOPLASM OF UNCERTAIN BEHAVIOR LUNG D38.1. COMPARISON: Comparison is made with CT study of the chest from 08 July 2020. This showed a nodular opacity in the left upper lobe near the apex medially.. TECHNIQUE: Approximately 45 minutes following the intravenous injection of a mCi dose of F-18 FDG, three-dimensional PET scintigraphy is acquired from the skull base to the proximal thighs. Triplanar noncontrast CT scanning is acquired through the same anatomic range for attenuation correction, and image registration with scan parameters optimized to minimize radiation exposure to the patient. PET scintigraphy and CT datasets were fused and displayed on a workstation with multiplanar and projection display capability. FINDINGS: Head and neck soft tissues are unremarkable. There is no abnormal hypermetabolic uptake in the thorax. No pulmonary parenchymal of uptake is observed. In the area where the prior CT study showed a nodular opacity, there is only a thin curvilinear fibrous strand. The nodular opacity has resolved. No other abnormal hypermetabolic uptake is seen in the thorax. No hilar or mediastinal amie uptake is seen. In the abdomen and pelvis, normal hepatic, splenic, gastrointestinal, and genitourinary FDG distribution is seen. No abnormal uptake is observed. Scan is otherwise unremarkable. IMPRESSION: Negative PET scintigraphy. The previously noted left apical pulmonary parenchymal nodular density has resolved consistent with inflammatory disease. <Electronically signed by Grant Greenwood > 02/16/21 [id number]
== END ==
LOC: M PLARAD 11:12
PROVIDERS: ATTEND Family Medicine
DX: D38.1 Neoplasm of uncertain behavior of trachea, bronchus and lung (principal)
CPT/HCPCS: 78815; A9552

== ENCOUNTER → 2021-02-20 | Outpatient (CLI) | payer SELFPAY | LOC: M LABSMTC 09:56 | PROVIDERS: ATTEND Pediatrics | DX: Z11.52 Encounter for screening for COVID-19 (principal) ==

== ENCOUNTER 2021-11-18 16:47 | Outpatient (CLI) | payer MEDICARE, OTHER ==
[~2021-11-18 16:47] MED LIST changes: +ALBUTEROL 90 MCG/ACT 8GM HFA INHALER INH PRN; +ALBUTEROL SULFATE 2.5 MG/0.5 ML INH NEB SOLN INH PRN; +EPINEPHrine INJ 1 MG/ML 1ML AMP IM PRN; +NS 1,000 ML IV SCH; +diphenhydrAMINE 50MG/ML VIAL (J1200) IV PRN; +methylPREDNISolone 125MG 2ML VIAL IV PRN
[2021-11-18] MEDS ORDERED: SOTROVIMAB 500 MG in NS 100 ML IV ONE (18:00)
[2021-11-18 18:20] VITALS: BP 174/81
[2021-11-18 18:50] VITALS: BP 177/84
[2021-11-18 20:14] VITALS: BP 162/90
== END 2021-11-18 22:12 | disposition home or self-care (01) ==
LOC: M OPCLI4PR 16:47 → M OPCLI4 16:47 → M 4MAIN 16:56 → M OPCLI4 22:12
PROVIDERS: ATTEND Family Medicine
DX: U07.1 COVID-19 (principal); Z88.0 Allergy status to penicillin; Z88.2 Allergy status to sulfonamides; Z88.6 Allergy status to analgesic agent

== ENCOUNTER 2022-02-14 13:49 | Emergency (ER) | payer MEDICARE, OTHER ==
[~2022-02-14] VITALS: Ht 170.2 cm; Wt 68.0 kg
[~2022-02-14 13:49] MED LIST changes: -ALBUTEROL 90 MCG/ACT 8GM HFA INHALER INH PRN; -ALBUTEROL SULFATE 2.5 MG/0.5 ML INH NEB SOLN INH PRN; -EPINEPHrine INJ 1 MG/ML 1ML AMP IM PRN; -NS 1,000 ML IV SCH; -diphenhydrAMINE 50MG/ML VIAL (J1200) IV PRN; -methylPREDNISolone 125MG 2ML VIAL IV PRN
[2022-02-14 13:52] VITALS: BP 180/90
== END 2022-02-14 15:04 | disposition left against medical advice (07) ==
LOC: M ED 13:49
DX: Z53.21 Procedure and treatment not carried out due to patient leaving prior to being seen by health care provider (principal)

== ENCOUNTER 2022-04-08 09:30 | Emergency (ER) | payer MEDICARE, OTHER ==
[~2022-04-08] VITALS: Ht 170.2 cm; Wt 69.0 kg
[2022-04-08 09:33] VITALS: BP 190/80
[2022-04-08] MEDS ORDERED: LAMO25TA4 (10:00)
[2022-04-08] MEDS ORDERED: HYDR50TA70 (10:00)
== END 2022-04-08 12:22 | disposition left against medical advice (07) ==
LOC: M ED 09:30
DX: Z53.29 Procedure and treatment not carried out because of patient's decision for other reasons (principal)

== ENCOUNTER → 2022-07-28 | Outpatient (CLI) | payer MEDICARE, OTHER ==
[~2022-07-28] MED LIST changes: +HYDR50TA70; +LAMO25TA4
[2022-07-28 14:10] LABS: HEMATOCRIT 44.3 % (36.0-47.0); HEMOGLOBIN 14.9 g/dl (12.0-15.5); MEAN CORPUSCULAR HEMOGLOBIN 31.8 pg (27.0-33.0); MEAN CORPUSCULAR HGB CONC 33.6 g/dl (32.0-36.5); MEAN CORPUSCULAR VOLUME 94.5 fl (80.0-96.0); PLATELET COUNT, AUTOMATED 256 10^3/uL (150-450); RED BLOOD COUNT 4.69 10^6/uL (4.00-5.40); WHITE BLOOD COUNT 8.2 10^3/uL (4.0-10.0)
[2022-07-28 14:42] LABS: HEMOGLOBIN A1c 5.8 %
[2022-07-28 15:03] LABS: ALBUMIN 3.9 GM/DL (3.2-5.2); ALT/SGPT 32 U/L (12-78); BILIRUBIN,TOTAL 0.2 MG/DL (0.2-1.0); BLOOD UREA NITROGEN 26 MG/DL (7-18); CALCIUM LEVEL 9.9 MG/DL (8.8-10.2); CARBON DIOXIDE LEVEL 31 MEQ/L (21-32); CHLORIDE LEVEL 105 MEQ/L (98-107); CHOLESTEROL LEVEL 158 MG/DL (<200); CHOLESTEROL RISK RATIO 3.224 (<5); CREATININE FOR GFR 0.84 MG/DL (0.55-1.30); FERRITIN 38 NG/ML (8-252); FREE T4 0.72 NG/DL (0.76-1.46); GLOMERULAR FILTRATION RATE > 60.0 (>45); GLUCOSE, FASTING 86 MG/DL (70-100); HDL CHOLESTEROL 49 MG/DL (>40); LDL CHOLESTEROL 89 MG/DL (<100); MAGNESIUM LEVEL 2.4 MG/DL (1.8-2.4); NON-HDL-C 109 MG/DL; POTASSIUM SERUM 4.2 MEQ/L (3.5-5.1); SODIUM LEVEL 140 MEQ/L (136-145); THYROID STIMULATING HORMONE 0.572 uIU/ML (0.358-3.740); TOTAL PROTEIN 8.4 GM/DL (6.4-8.2); TRIGLYCERIDES LEVEL 98 MG/DL (<150)
== END ==
LOC: M PLALAB 11:59
PROVIDERS: ATTEND Family Medicine
DX: Z13.6 Encounter for screening for cardiovascular disorders (principal)

== ENCOUNTER → 2022-08-11 | Outpatient (CLI) | payer MEDICARE, OTHER | LOC: M CARPUL 14:48 | PROVIDERS: ATTEND Family Medicine | DX: J44.9 Chronic obstructive pulmonary disease, unspecified (principal) ==

== ENCOUNTER 2022-08-26 15:03 | Emergency (ER) | payer MEDICARE, OTHER ==
[~2022-08-26] VITALS: Ht 170.2 cm; Wt 67.3 kg
[2022-08-26 15:39] VITALS: BP 160/90
== END 2022-08-26 16:00 | disposition left against medical advice (07) ==
LOC: M ED 15:03
DX: Z53.21 Procedure and treatment not carried out due to patient leaving prior to being seen by health care provider (principal)

== ENCOUNTER → 2022-09-24 | Outpatient (CLI) | payer MEDICARE, OTHER | LOC: M WHC 07:56 | PROVIDERS: ATTEND Family Medicine | DX: Z78.0 Asymptomatic menopausal state (principal); Z13.820 Encounter for screening for osteoporosis; Z53.9 Procedure and treatment not carried out, unspecified reason ==

== ENCOUNTER → 2022-09-28 | Outpatient (CLI) | payer MEDICARE, OTHER | LOC: M WHC 12:59 | PROVIDERS: ATTEND Family Medicine | DX: Z78.0 Asymptomatic menopausal state (principal); Z13.820 Encounter for screening for osteoporosis ==

== ENCOUNTER → 2023-02-08 | Outpatient (CLI) | payer MEDICARE, OTHER ==
[2023-02-08 18:15] LABS: CALCIUM LEVEL 9.5 MG/DL (8.3-10.6); CREATININE FOR GFR 1.08 MG/DL (0.55-1.30); POTASSIUM SERUM 4.1 MMOL/L (3.5-5.1)
[2023-02-08 18:17] LABS: FREE T4 1.1 NG/DL (0.89-1.76); THYROID STIMULATING HORMONE 0.055 uIU/ML (0.55-4.78)
== END ==
LOC: M PLALAB 16:32
PROVIDERS: ATTEND Family Medicine
DX: I10 Essential (primary) hypertension (principal)

== ENCOUNTER → 2023-04-15 | Outpatient (CLI) | payer MEDICARE, OTHER | LOC: M RAD 10:27 | PROVIDERS: ATTEND Family Medicine | DX: I73.9 Peripheral vascular disease, unspecified (principal) ==

== ENCOUNTER → 2023-06-22 | Outpatient (CLI) | payer MEDICARE, OTHER ==
[2023-06-22 13:07] LABS: BLOOD UREA NITROGEN 33 MG/DL (9-23); CREATININE FOR GFR 0.89 MG/DL (0.55-1.30); GLOMERULAR FILTRATION RATE > 60.0 (>45)
== END ==
LOC: M LAB 11:53
PROVIDERS: ATTEND Surgery Vascular Surgery
DX: I73.9 Peripheral vascular disease, unspecified (principal)

== ENCOUNTER → 2023-06-24 | Outpatient (CLI) | payer MEDICARE, OTHER ==
[~2023-06-24] MED LIST changes: +ISOVUE-370 76% 100ML VIAL As Ordered ONE
== END ==
LOC: M RAD 07:35
PROVIDERS: ATTEND Surgery Vascular Surgery
DX: I73.9 Peripheral vascular disease, unspecified (principal); I65.23 Occlusion and stenosis of bilateral carotid arteries
CPT/HCPCS: 75635; 93880; Q9967

== ENCOUNTER → 2023-08-09 | Outpatient (CLI) | payer MEDICARE, OTHER ==
[~2023-08-09] MED LIST changes: -ISOVUE-370 76% 100ML VIAL As Ordered ONE
[2023-08-09 15:53] LABS: BASO # 0.1 10^3/uL (0.0-0.2); BASO % 0.5 % (0.0-1.0); EOS # 0.1 10^3/uL (0.0-0.5); EOS % 1.5 % (0.0-3.0); HEMATOCRIT 43.1 % (36.0-47.0); HEMOGLOBIN 14.5 g/dl (12.0-15.5); LYMPH # 2.3 10^3/uL (1.5-5.0); LYMPH % 24.6 % (24.0-44.0); MEAN CORPUSCULAR HEMOGLOBIN 31.8 pg (27.0-33.0); MEAN CORPUSCULAR HGB CONC 33.6 g/dl (32.0-36.5); MEAN CORPUSCULAR VOLUME 94.5 fl (80.0-96.0); MONO # 0.7 10^3/uL (0.0-0.8); MONO % 7.5 % (2.0-8.0); NEUTROPHILS % 65.5 % (36.0-66.0); PLATELET COUNT, AUTOMATED 245 10^3/uL (150-450); RED BLOOD COUNT 4.56 10^6/uL (4.00-5.40); WHITE BLOOD COUNT 9.2 10^3/uL (4.0-10.0)
[2023-08-09 16:18] LABS: CREATININE, URINE 49.4 MG/DL; MAU/CREAT RATIO 60.7 MCG/MG (0.0-30.0)
[2023-08-09 16:19] LABS: APPEARANCE, URINE CLEAR (CLEAR); BACTERIA, URINE AUTO NEGATIVE (NEGATIVE); BILIRUBIN, URINE AUTO NEGATIVE (NEGATIVE); BLOOD, URINE BLOOD NEGATIVE (NEGATIVE); COLOR, URINE YELLOW (YELLOW); GLUCOSE, URINE (UA) AUTO NEGATIVE (NEGATIVE); KETONE, URINE AUTO NEGATIVE (NEGATIVE); LEUKOCYTE ESTERASE, URINE AUTO 2+ (NEGATIVE); MUCUS, URINE SMALL (NEGATIVE); NITRITE, URINE AUTO NEGATIVE (NEGATIVE); PROTEIN, URINE AUTO NEGATIVE (NEGATIVE); RBC, URINE AUTO 2 /HPF (0-3); SPECIFIC GRAVITY URINE AUTO 1.014 (1.002-1.035); SQUAMOUS EPITHELIAL CELL UR AU 3 /HPF (0-6); UROBILINOGEN, URINE AUTO 0.2 mg/dL (0.0-2.0); WBC, URINE AUTO 17 /HPF (0-3)
[2023-08-09 16:23] LABS: ALBUMIN 3.8 G/DL (3.2-5.2); ALKALINE PHOSPHATASE 78 U/L (46-116); ALT/SGPT 25 U/L (7.0-40); AST/SGOT 27 U/L (<34); BILIRUBIN,TOTAL 0.3 MG/DL (0.3-1.2); BLOOD UREA NITROGEN 21 MG/DL (9-23); CALCIUM LEVEL 9.7 MG/DL (8.3-10.6); CARBON DIOXIDE LEVEL 34 MMOL/L (20-31); CHLORIDE LEVEL 101 MMOL/L (98-107); CREATININE FOR GFR 0.83 MG/DL (0.55-1.30); GLOMERULAR FILTRATION RATE > 60.0 (>45); GLUCOSE, FASTING 105 MG/DL (74-106); POTASSIUM SERUM 4.2 MMOL/L (3.5-5.1); SODIUM LEVEL 141 MMOL/L (136-145); TOTAL PROTEIN 7.7 G/DL (5.7-8.2)
[2023-08-09 16:24] LABS: FREE T4 1.08 NG/DL (0.89-1.76)
[2023-08-09 16:25] LABS: THYROID STIMULATING HORMONE 0.111 uIU/ML (0.55-4.78)
== END ==
LOC: M PLALAB 12:57
PROVIDERS: ATTEND Family Medicine
DX: E05.90 Thyrotoxicosis, unspecified without thyrotoxic crisis or storm (principal); R63.6 Underweight; I10 Essential (primary) hypertension

== ENCOUNTER → 2024-07-27 | Outpatient (CLI) | payer MEDICARE, OTHER ==
[~2024-07-27] MED LIST changes: -EFFE150C2 PO; +EFFE150C3 PO; -EFFE37.5; +EFFE37.52
[2024-07-27 18:15] LABS: BASO # 0.1 10^3/uL (0.0-0.2); BASO % 0.5 % (0.0-1.0); EOS # 0.1 10^3/uL (0.0-0.5); EOS % 0.7 % (0.0-3.0); HEMATOCRIT 41.7 % (36.0-47.0); HEMOGLOBIN 13.8 g/dl (12.0-15.5); LYMPH % 21.2 % (24.0-44.0); MEAN CORPUSCULAR HEMOGLOBIN 31.3 pg (27.0-33.0); MEAN CORPUSCULAR HGB CONC 33.1 g/dl (32.0-36.5); MEAN CORPUSCULAR VOLUME 94.6 fl (80.0-96.0); MONO % 7.1 % (2.0-8.0); NEUTROPHILS # 9.8 10^3/uL (1.5-8.5); NEUTROPHILS % 69.9 % (36.0-66.0); PLATELET COUNT, AUTOMATED 408 10^3/uL (150-450); RED BLOOD COUNT 4.41 10^6/uL (4.00-5.40)
[2024-07-27 18:54] LABS: THYROID STIMULATING HORMONE 0.224 uIU/ML (0.55-4.78)
[2024-07-27 18:56] LABS: FREE T4 1.04 NG/DL (0.89-1.76)
[2024-07-27 18:58] LABS: ALBUMIN 3.2 G/DL (3.2-5.2); ALKALINE PHOSPHATASE 109 U/L (46-116); ALT/SGPT 50 U/L (7.0-40); AST/SGOT 27 U/L (<34); BILIRUBIN,TOTAL 0.2 MG/DL (0.3-1.2); BLOOD UREA NITROGEN 28 MG/DL (9-23); CALCIUM LEVEL 10.4 MG/DL (8.3-10.6); CARBON DIOXIDE LEVEL 30 MMOL/L (20-31); CHLORIDE LEVEL 103 MMOL/L (98-107); CREATININE FOR GFR 0.94 MG/DL (0.55-1.30); GLOMERULAR FILTRATION RATE > 60.0 (>45); GLUCOSE, FASTING 105 MG/DL (74-106); POTASSIUM SERUM 3.8 MMOL/L (3.5-5.1); SODIUM LEVEL 140 MMOL/L (136-145); TOTAL PROTEIN 7.9 G/DL (5.7-8.2)
== END ==
LOC: M PLAIMG 15:03
PROVIDERS: ATTEND Family Medicine
DX: R53.83 Other fatigue (principal); R06.09 Other forms of dyspnea; J44.9 Chronic obstructive pulmonary disease, unspecified

== ENCOUNTER → 2024-08-06 | Outpatient (CLI) | payer MEDICARE, OTHER | LOC: M WHC 13:47 | PROVIDERS: ATTEND Family Medicine | DX: Z12.31 Encounter for screening mammogram for malignant neoplasm of breast (principal) ==

== ENCOUNTER → 2024-08-17 | Outpatient (CLI) | payer MEDICARE, OTHER | LOC: M RAD 07:07 | PROVIDERS: ATTEND Family Medicine | DX: F17.210 Nicotine dependence, cigarettes, uncomplicated (principal) ==

== ENCOUNTER → 2024-09-24 | Outpatient (CLI) | payer MEDICARE, OTHER | LOC: M WHC 09:09 | PROVIDERS: ATTEND Family Medicine | DX: Z12.31 Encounter for screening mammogram for malignant neoplasm of breast (principal) | CPT/HCPCS: 76642; 77065; G0279 ==

== ENCOUNTER → 2024-10-04 | Outpatient (CLI) | payer MEDICARE, OTHER ==
[2024-10-04 14:07] VITALS: TEMP 98.5
[2024-10-04 14:34] VITALS: BP 150/86; O2SAT 97
== END ==
LOC: M WHCPRO 08:50
PROVIDERS: ATTEND Family Medicine
DX: R92.8 Other abnormal and inconclusive findings on diagnostic imaging of breast (principal); N63.42 Unspecified lump in left breast, subareolar; C50.112 Malignant neoplasm of central portion of left female breast

== ENCOUNTER → 2024-11-05 | Outpatient (CLI) | payer MEDICARE, OTHER ==
[~2024-11-05] MED LIST changes: +PROHANCE 279.3MG/ML 15ML VIAL ONE
== END ==
LOC: M PLAIMG 09:38
PROVIDERS: ATTEND Family Medicine
DX: C50.912 Malignant neoplasm of unspecified site of left female breast (principal); N63.11 Unspecified lump in the right breast, upper outer quadrant
CPT/HCPCS: A9576; C8908

== ENCOUNTER → 2024-11-12 | Outpatient (CLI) | payer MEDICARE, OTHER ==
[~2024-11-12] MED LIST changes: -PROHANCE 279.3MG/ML 15ML VIAL ONE
== END ==
LOC: M WHC 14:56
PROVIDERS: ATTEND Family Medicine
DX: C50.912 Malignant neoplasm of unspecified site of left female breast (principal); N63.10 Unspecified lump in the right breast, unspecified quadrant

== ENCOUNTER → 2024-12-27 | Outpatient (CLI) | payer MEDICARE, OTHER ==
[~2024-12-27] MED LIST changes: +CLON0.5T2
== END ==
LOC: M RAD 14:02
PROVIDERS: ATTEND Surgery
DX: I73.9 Peripheral vascular disease, unspecified (principal)

== ENCOUNTER → 2025-01-16 | Outpatient (CLI) | payer MEDICARE, OTHER ==
[~2025-01-16] MED LIST changes: +LETR2.5T2 PO
== END ==
LOC: M PLALAB 15:43
PROVIDERS: ATTEND Surgery
DX: C50.212 Malignant neoplasm of upper-inner quadrant of left female breast (principal)

== ENCOUNTER → 2025-01-24 | Outpatient (CLI) | payer MEDICARE, OTHER | LOC: M PLAIMG 10:52 | PROVIDERS: ATTEND Family Medicine | DX: R91.1 Solitary pulmonary nodule (principal) ==

== ENCOUNTER → 2025-01-29 | Outpatient (CLI) | payer MEDICARE, OTHER | LOC: M WHC 09:00 | PROVIDERS: ATTEND Specialist | DX: M81.0 Age-related osteoporosis without current pathological fracture (principal) ==

== ENCOUNTER → 2025-06-04 | Outpatient (REF) | payer MEDICARE, OTHER ==
[~2025-06-04] MED LIST changes: -CLON0.5T2; +CLON0.5T2 PO; -HYDR50TA70; +HYDR50TA70 PO; +LAMO-18 PO; -LAMO25TA4; +VENTAER INH; -VERA100C4; +VERA100C6
== END ==
LOC: M PLALAB 15:32
PROVIDERS: ATTEND Nurse Practitioner Family
DX: N73.9 Female pelvic inflammatory disease, unspecified (principal); N90.4 Leukoplakia of vulva

== ENCOUNTER 2025-06-24 13:56 | Outpatient (RCR) | payer MEDICARE, OTHER ==
[~2025-06-24 13:56] MED LIST changes: -IBUP-1022 PO; +IBUP600T42 PO
== END 2025-07-16 ==
LOC: M PT 13:56
PROVIDERS: ATTEND Family Medicine
DX: R26.2 Difficulty in walking, not elsewhere classified (principal); J44.9 Chronic obstructive pulmonary disease, unspecified; I73.9 Peripheral vascular disease, unspecified; R53.1 Weakness

== ENCOUNTER → 2025-07-15 | Outpatient (CLI) | payer MEDICARE, OTHER | LOC: M CARPUL 11:49 | PROVIDERS: ATTEND Internal Medicine Pulmonary Disease | DX: R01.1 Cardiac murmur, unspecified (principal) ==